=== PATIENT | male | born 1960 | race African-American/Black ===

== ENCOUNTER 2023-06-07 19:55 | Inpatient (IN) | payer MEDICARE, OTHER ==
[~2023-06-07] VITALS: Ht 167.6 cm; Wt 59.4 kg
[2023-06-07] MEDS ORDERED: SODIUM CHLORIDE 0.9% 1,000 ML IV ONE (21:30)
[2023-06-07 22:57] LABS: BASOPHILS % 0.2 % (0.0-2.0); EOSINOPHILS % 1.4 % (0.0-5.0); HEMOGLOBIN. 14.6 g/dL (14.0-18.0); LYMPHOCYTES % 16.5 % (20.0-50.0); MEAN CORPUSCULAR HEMOGLOBIN 28.7 pg (28.0-32.0); MEAN CORPUSCULAR HGB CONC 31.6 g/dL (31.0-37.0); MEAN CORPUSCULAR VOLUME 90.8 fL (80.0-94.0); MEAN PLATELET VOLUME 9.4 fl (7.4-10.4); MONOCYTES % 8.6 % (2.0-8.0); NEUTROPHILS % 73.3 % (40.0-76.0); PLATELET 210 x1000/uL (130-400); RED BLOOD CELL COUNT 5.07 mill/uL (4.7-6.1); RED CELL DISTRIBUTION WIDTH 14.1 % (11.6-14.6); WHITE BLOOD COUNT 6.7 x1000/uL (4.5-11.0)
[2023-06-07 23:21] LABS: ALANINE AMINOTRANSFERASE 72 IU/L (10-49); ALBUMIN 3.8 g/dL (3.2-4.8); ASPARTATE AMINOTRANSFERASE 26 IU/L (<34); BILIRUBIN TOTAL 0.5 mg/dL (0.1-1.0); CALCIUM 9.6 mg/dL (8.7-10.4); CARBON DIOXIDE 28 mEq/L (21-32); CHLORIDE 109 mEq/L (98-107); CREATININE 0.7 mg/dL (0.6-1.3); GLUCOSE 84 mg/dL (70-105); POTASSIUM 4.3 mEq/L (3.5-5.1); PROTEIN TOTAL 7.3 g/dL (6.0-8.3); SODIUM 144 mEq/L (136-145); UREA NITROGEN BLOOD 17 mg/dL (9-23)
[2023-06-07] MEDS ORDERED: LORAZEPAM 2MG/ML INJ IM ONE (23:30)
[2023-06-07] MEDS ORDERED: LORAZEPAM 2MG/ML UD SYRINGE IM NR (23:45)
[2023-06-08 04:00] VITALS: BP 154/101; PULSE 80; RESP 18; TEMP 97.5
[2023-06-08 04:20] VITALS: BP 154/101; PULSE 80; RESP 18; TEMP 97.5
[2023-06-08 08:00] VITALS: BP 161/94; PULSE 73; RESP 16; TEMP 96
[2023-06-08] MEDS: DEXT 5%/0.9% NACL 1,000 ML IV SCH ×2 (09:50→23:01)
[2023-06-08] MEDS ORDERED: ASPI-1497 GT (10:06)
[2023-06-08] MEDS ORDERED: ATOR40TA70 MT (10:07)
[2023-06-08] MEDS ORDERED: FAMO20TA8 MT (10:08)
[2023-06-08] MEDS ORDERED: SENN-257 GT (10:14)
[2023-06-08] MEDS ORDERED: LISI30TA36 PO (10:14)
[2023-06-08] MEDS ORDERED: METO25TA6 GT (10:14)
[2023-06-08] MEDS ORDERED: LEVE500S9 GT (10:17)
[2023-06-08 12:00] VITALS: BP 144/96; PULSE 73; RESP 18; TEMP 97
[2023-06-08 16:00] VITALS: BP 167/99; PULSE 74; RESP 18; TEMP 96.8
[2023-06-08] MEDS ORDERED: HYDRALAZINE 20MG/ML VIAL IV PRN (16:00)
[2023-06-08] MEDS: HYDRALAZINE 10 MG in SODIUM CHLORIDE 0.9% 50 ML IV PRN ×2 (17:02→23:20)
[2023-06-08 20:00] VITALS: BP 161/94; PULSE 79; RESP 18; TEMP 97.9
[2023-06-08] MEDS ORDERED: ACETAMINOPHEN 325MG TABLET PO PRN (21:45)
[2023-06-08] MEDS ORDERED: ONDANSETRON HCL 4MG/2ML INJ IV PRN (21:45)
[2023-06-08] MEDS ORDERED: IPRATROPIUM/ALBUTEROL 0.5-3(2.5)MG/3ML NEB HHN SCH (21:45)
[2023-06-09] VITALS: BP 167/103; PULSE 93; RESP 18; TEMP 98.2
[2023-06-09 04:00] VITALS: BP 168/112; PULSE 98; RESP 18; TEMP 97.7
[2023-06-09 07:10] LABS: BASOPHILS % 0.2 % (0.0-2.0); EOSINOPHILS % 1.7 % (0.0-5.0); HEMATOCRIT. 42.2 % (42.0-52.0); HEMOGLOBIN. 13.9 g/dL (14.0-18.0); LYMPHOCYTES % 11.6 % (20.0-50.0); MEAN CORPUSCULAR HGB CONC 32.9 g/dL (31.0-37.0); MEAN PLATELET VOLUME 9.7 fl (7.4-10.4); MONOCYTES % 8.2 % (2.0-8.0); NEUTROPHILS % 78.3 % (40.0-76.0); PLATELET 226 x1000/uL (130-400); RED CELL DISTRIBUTION WIDTH 13.8 % (11.6-14.6); WHITE BLOOD COUNT 7.1 x1000/uL (4.5-11.0)
[2023-06-09 07:56] LABS: CALCIUM 9.5 mg/dL (8.7-10.4); CARBON DIOXIDE 30 mEq/L (21-32); CHLORIDE 111 mEq/L (98-107); CREATININE 0.6 mg/dL (0.6-1.3); GLUCOSE 103 mg/dL (70-105); POTASSIUM 3.5 mEq/L (3.5-5.1); SODIUM 148 mEq/L (136-145); UREA NITROGEN BLOOD 15 mg/dL (9-23)
[2023-06-09 08:00] VITALS: BP 169/96; PULSE 94; RESP 19; TEMP 97.7
[2023-06-09] MEDS: PANTOPRAZOLE SODIUM 40 MG/VIAL IV SCH (08:20)
[2023-06-09] MEDS: HYDRALAZINE 10 MG in SODIUM CHLORIDE 0.9% 50 ML IV PRN (09:08)
[2023-06-09] MEDS ORDERED: HALOPERIDOL LACTATE 5MG/ML VIAL IM NR (10:30)
[2023-06-09] MEDS: DEXT 5%/0.45% NACL 1000ML 1,000 ML IV SCH (10:46)
[2023-06-09] MEDS ORDERED: LABETALOL HCL VIAL 20 MG/4 ML VIAL IV ONE (11:30)
[2023-06-09 12:00] VITALS: BP 172/105; PULSE 78; RESP 19; TEMP 97.6
[2023-06-09] MEDS ORDERED: LABETALOL HCL IV ONE (12:00)
[2023-06-09] MEDS ORDERED: DEXTROSE 5% IV ONE (12:00)
[2023-06-09] MEDS ORDERED: WATER IV ONE (12:00)
[2023-06-09] MEDS ORDERED: LABETALOL HCL VIAL 20 MG/4 ML VIAL IV NR (12:30)
[2023-06-09] MEDS ORDERED: CLONIDINE HCL 0.1MG/24HR PATCH TD SCH (13:00)
[2023-06-09 16:01] VITALS: BP 147/92; PULSE 97; RESP 19; TEMP 97.6
[2023-06-09 20:00] VITALS: BP 128/83; PULSE 68; RESP 14; TEMP 98.4
[2023-06-09] MEDS ORDERED: HALOPERIDOL LACTATE 5MG/ML VIAL IM ONE (20:17)
[2023-06-10] VITALS: BP 171/111; PULSE 81; RESP 14; TEMP 97.6
[2023-06-10] MEDS: HYDRALAZINE 10 MG in SODIUM CHLORIDE 0.9% 50 ML IV PRN ×2 (01:04→13:14)
[2023-06-10 04:00] VITALS: BP 159/87; PULSE 74; RESP 16; TEMP 97.5
[2023-06-10 07:45] LABS: BASOPHILS % 0.2 % (0.0-2.0); EOSINOPHILS % 1.6 % (0.0-5.0); HEMATOCRIT. 41.7 % (42.0-52.0); HEMOGLOBIN. 13.8 g/dL (14.0-18.0); LYMPHOCYTES % 12.1 % (20.0-50.0); MEAN CORPUSCULAR HGB CONC 33.1 g/dL (31.0-37.0); MEAN CORPUSCULAR VOLUME 87.4 fL (80.0-94.0); MEAN PLATELET VOLUME 9.7 fl (7.4-10.4); MONOCYTES % 8.8 % (2.0-8.0); NEUTROPHILS % 77.3 % (40.0-76.0); PLATELET 215 x1000/uL (130-400); RED BLOOD CELL COUNT 4.78 mill/uL (4.7-6.1); RED CELL DISTRIBUTION WIDTH 13.9 % (11.6-14.6); WHITE BLOOD COUNT 7.7 x1000/uL (4.5-11.0)
[2023-06-10 08:00] VITALS: BP 173/89; PULSE 61; RESP 67; TEMP 97.2
[2023-06-10 08:05] LABS: CALCIUM 9.8 mg/dL (8.7-10.4); CARBON DIOXIDE 27 mEq/L (21-32); CHLORIDE 108 mEq/L (98-107); CREATININE 0.6 mg/dL (0.6-1.3); GLUCOSE 102 mg/dL (70-105); POTASSIUM 3.4 mEq/L (3.5-5.1); SODIUM 145 mEq/L (136-145); UREA NITROGEN BLOOD 9 mg/dL (9-23)
[2023-06-10] MEDS: PANTOPRAZOLE SODIUM 40 MG/VIAL IV SCH (09:33)
[2023-06-10 12:11] VITALS: BP 168/103; PULSE 72; RESP 17; TEMP 97.3
[2023-06-10] MEDS ORDERED: DIATR MEGLU/DIATRIZOATE SOLN 30ML ONE (12:53)
[2023-06-10] MEDS: DEXT 5%/0.45% NACL 1000ML 1,000 ML IV SCH ×2 (13:25)
[2023-06-10] MEDS ORDERED: HALOPERIDOL LACTATE 5MG/ML VIAL IM NR (14:00)
[2023-06-10 16:00] VITALS: BP 152/96; PULSE 91; RESP 18; TEMP 97.4
[2023-06-10 20:00] VITALS: BP 152/95; PULSE 114; RESP 18; TEMP 97.9
[2023-06-10] MEDS ORDERED: LORAZEPAM 4MG/ML INJ IV PRN (23:15)
[2023-06-11] VITALS: BP 110/76; PULSE 58; RESP 18; TEMP 97
[2023-06-11] MEDS: DEXT 5%/0.45% NACL 1000ML 1,000 ML IV SCH ×2 (02:45→16:05)
[2023-06-11 04:00] VITALS: BP 156/101; PULSE 83; RESP 18; TEMP 97
[2023-06-11 06:46] LABS: BASOPHILS % 0.3 % (0.0-2.0); EOSINOPHILS % 3.5 % (0.0-5.0); HEMATOCRIT. 40.3 % (42.0-52.0); HEMOGLOBIN. 13.3 g/dL (14.0-18.0); LYMPHOCYTES % 24.6 % (20.0-50.0); MEAN CORPUSCULAR VOLUME 87.7 fL (80.0-94.0); MEAN PLATELET VOLUME 8.8 fl (7.4-10.4); NEUTROPHILS % 61.6 % (40.0-76.0); PLATELET 191 x1000/uL (130-400); RED CELL DISTRIBUTION WIDTH 13.6 % (11.6-14.6); WHITE BLOOD COUNT 3.5 x1000/uL (4.5-11.0)
[2023-06-11 06:50] LABS: CALCIUM 9.5 mg/dL (8.7-10.4); CARBON DIOXIDE 32 mEq/L (21-32); CHLORIDE 105 mEq/L (98-107); CREATININE 0.5 mg/dL (0.6-1.3); GLUCOSE 104 mg/dL (70-105); POTASSIUM 3.3 mEq/L (3.5-5.1); SODIUM 140 mEq/L (136-145); UREA NITROGEN BLOOD 7 mg/dL (9-23)
[2023-06-11 08:00] VITALS: BP 148/93; PULSE 84; RESP 16; TEMP 97.4
[2023-06-11] MEDS ORDERED: QUETIAPINE FUMARATE 25MG TABLET GT SCH (09:00)
[2023-06-11] MEDS: FAMOTIDINE 20MG TABLET GT SCH ×2 (10:00→21:44)
[2023-06-11] MEDS: PANTOPRAZOLE SODIUM 40 MG/VIAL IV SCH (10:00)
[2023-06-11] MEDS: LEVETIRACETAM 500MG/5ML CUP GT SCH ×2 (10:01→21:44)
[2023-06-11] MEDS: METOPROLOL TARTRATE 25MG TABLET GT SCH ×2 (10:01→21:48)
[2023-06-11 12:00] VITALS: BP 134/94; PULSE 71; RESP 17; TEMP 98
[2023-06-11 16:00] VITALS: BP 140/98; PULSE 81; RESP 16; TEMP 98
[2023-06-11] MEDS ORDERED: POTASSIUM CHLORIDE 20MEQ/PACKET PEG NR ×2 (16:00→22:45)
[2023-06-11 17:23] LABS: BG BASE EXCESS 1.9 mmol/L (-2.0-2.0); BG CARBOXYHEMOGLOBIN 0.4 % (0.5-1.5); BG DEOXYHEMOGLOBIN 2.1 % (0.0-5.0); BG FRACTION INSPIRED OXYGEN 21; BG HCO3 ACT 24.5 mmol/L (22.0-26.0); BG METHEMOGLOBIN 0.2 % (0.0-1.5); BG OXYGEN SATURATION 97.9 % (92.0-98.5); BG OXYHEMOGLOBIN 97.3 % (94.0-97.0); BG PCO2 32.4 mmHg (35.0-45.0); BG PH 7.496 (7.350-7.450); BG PO2 107.5 mmHg (75.0-100.0); BG SAMPLE SITE RIGHT RADIAL; BG TOTAL HEMOGLOBIN 14.2 g/dL (12.0-18.0); BG VENT MODE ROOM AIR
[2023-06-11] MEDS: ATORVASTATIN CALCIUM 40MG TABLET GT SCH (21:44)
[2023-06-12] MEDS: DEXT 5%/0.45% NACL 1000ML 1,000 ML IV SCH (05:25)
[2023-06-12 06:51] LABS: BASOPHILS % 0.1 % (0.0-2.0); EOSINOPHILS % 1.5 % (0.0-5.0); HEMATOCRIT. 40.5 % (42.0-52.0); HEMOGLOBIN. 13.1 g/dL (14.0-18.0); LYMPHOCYTES % 15.7 % (20.0-50.0); MEAN CORPUSCULAR HEMOGLOBIN 28.8 pg (28.0-32.0); MEAN CORPUSCULAR HGB CONC 32.5 g/dL (31.0-37.0); MEAN CORPUSCULAR VOLUME 88.7 fL (80.0-94.0); MEAN PLATELET VOLUME 9.6 fl (7.4-10.4); MONOCYTES % 6.9 % (2.0-8.0); NEUTROPHILS % 75.8 % (40.0-76.0); PLATELET 189 x1000/uL (130-400); RED BLOOD CELL COUNT 4.56 mill/uL (4.7-6.1); RED CELL DISTRIBUTION WIDTH 13.6 % (11.6-14.6)
[2023-06-12 06:54] LABS: CALCIUM 9.2 mg/dL (8.7-10.4); CARBON DIOXIDE 30 mEq/L (21-32); CHLORIDE 106 mEq/L (98-107); CREATININE 0.6 mg/dL (0.6-1.3); GLUCOSE 93 mg/dL (70-105); POTASSIUM 3.4 mEq/L (3.5-5.1); SODIUM 141 mEq/L (136-145); UREA NITROGEN BLOOD 12 mg/dL (9-23)
[2023-06-12 08:05] VITALS: BP 122/74; PULSE 60; RESP 18; TEMP 97
[2023-06-12] MEDS: QUETIAPINE FUMARATE 25MG TABLET PO SCH ×2 (08:52→16:05)
[2023-06-12] MEDS: FAMOTIDINE 20MG TABLET GT SCH ×2 (08:52→16:05)
[2023-06-12] MEDS: LEVETIRACETAM 500MG/5ML CUP GT SCH ×2 (08:52→21:28)
[2023-06-12] MEDS: METOPROLOL TARTRATE 25MG TABLET GT SCH ×2 (08:53→16:06)
[2023-06-12] MEDS ORDERED: LACTULOSE 20G/30ML UDC PO NR (09:15)
[2023-06-12] MEDS ORDERED: HALOPERIDOL LACTATE 5MG/ML VIAL IM NR ×2 (11:00→21:00)
[2023-06-12 12:52] VITALS: BP 146/71; PULSE 61; TEMP 97.5; O2SAT 98
[2023-06-12 16:00] VITALS: BP 153/92; PULSE 92; RESP 18; TEMP 97.5
[2023-06-12 20:00] VITALS: BP 147/92; PULSE 70; RESP 18; TEMP 97.9
[2023-06-12] MEDS: ATORVASTATIN CALCIUM 40MG TABLET GT SCH (21:28)
[2023-06-12] MEDS: RISPERIDONE 1MG TABLET PO SCH (22:12)
[2023-06-13] VITALS (7 sets, daily range): BP systolic 120–163; BP diastolic 67–92; PULSE 72–96; RESP 18–20; TEMP 92.2–98.1; O2SAT 98
[2023-06-13] MEDS ORDERED: HALOPERIDOL LACTATE 5MG/ML VIAL IM NR (07:00)
[2023-06-13] MEDS: DEXT 5%/0.45% NACL 1000ML 1,000 ML IV SCH (08:05)
[2023-06-13] MEDS: QUETIAPINE FUMARATE 25MG TABLET PO SCH ×2 (08:42→16:50)
[2023-06-13] MEDS: FAMOTIDINE 20MG TABLET GT SCH ×2 (08:42→16:50)
[2023-06-13] MEDS: METOPROLOL TARTRATE 25MG TABLET GT SCH ×2 (08:42→16:50)
[2023-06-13] MEDS: RISPERIDONE 1MG TABLET PO SCH (08:42)
[2023-06-13] MEDS: LEVETIRACETAM 500MG/5ML CUP GT SCH (08:42)
== END 2023-06-13 18:43 | DRG 252 ==
LOC: ER 19:55 → EDBEDREQTM 06-08 01:40 → EDBEDREQ 06-08 01:40 → 6WST 06-08 03:28
PROVIDERS: ADMIT Internal Medicine; ATTEND Internal Medicine
PROC: 0D20XUZ Change Feeding Device in Upper Intestinal Tract, External Approach (ICD-10-PCS; principal; 2023-06-10)
DX: K94.23 Gastrostomy malfunction (principal); G93.40 Encephalopathy, unspecified; R62.7 Adult failure to thrive; F01.50 Vascular dementia, unspecified severity, without behavioral disturbance, psychotic disturbance, mood disturbance, and anxiety; R74.01 Elevation of levels of liver transaminase levels; E78.5 Hyperlipidemia, unspecified; I10 Essential (primary) hypertension; I25.10 Atherosclerotic heart disease of native coronary artery without angina pectoris; Z68.21 Body mass index [BMI] 21.0-21.9, adult; E11.9 Type 2 diabetes mellitus without complications; G40.909 Epilepsy, unspecified, not intractable, without status epilepticus; J44.9 Chronic obstructive pulmonary disease, unspecified; Z86.73 Personal history of transient ischemic attack (TIA), and cerebral infarction without residual deficits
CPT/HCPCS: 36415; 36600; 74018; 80048; 80053; 82375; 82805; 85025; 99285; A6261; C9113; J0360; J1630; J2060; J3490; J7030; J7042; J7060; Q9963

== ENCOUNTER 2023-06-16 09:49 | Emergency (ER) | payer MEDICARE, OTHER ==
[~2023-06-16] VITALS: Ht 165.1 cm; Wt 70.0 kg
[~2023-06-16 09:49] MED LIST: ASPI-1497 GT; ATOR40TA70 MT; FAMO20TA8 MT; LEVE500S9 GT; LISI30TA36 PO; METO25TA6 GT; SENN-257 GT
[2023-06-16 10:02] VITALS: O2SAT 98
[2023-06-16 10:40] LABS: BASOPHILS % 0.1 % (0.0-2.0); EOSINOPHILS % 1.7 % (0.0-5.0); HEMATOCRIT. 41.9 % (42.0-52.0); HEMOGLOBIN. 13.4 g/dL (14.0-18.0); LYMPHOCYTES % 8.6 % (20.0-50.0); MEAN CORPUSCULAR HEMOGLOBIN 28.4 pg (28.0-32.0); MEAN CORPUSCULAR HGB CONC 31.9 g/dL (31.0-37.0); MEAN CORPUSCULAR VOLUME 89.1 fL (80.0-94.0); MEAN PLATELET VOLUME 8.9 fl (7.4-10.4); MONOCYTES % 7.8 % (2.0-8.0); NEUTROPHILS % 81.8 % (40.0-76.0); PLATELET 182 x1000/uL (130-400); RED CELL DISTRIBUTION WIDTH 14.3 % (11.6-14.6); WHITE BLOOD COUNT 8.7 x1000/uL (4.5-11.0)
[2023-06-16 12:54] LABS: ALANINE AMINOTRANSFERASE 25 IU/L (10-49); ALBUMIN 3.6 g/dL (3.2-4.8); ASPARTATE AMINOTRANSFERASE 19 IU/L (<34); BILIRUBIN TOTAL 0.3 mg/dL (0.1-1.0); CALCIUM 9.2 mg/dL (8.7-10.4); CARBON DIOXIDE 28 mEq/L (21-32); CHLORIDE 102 mEq/L (98-107); CREATININE 0.6 mg/dL (0.6-1.3); GLUCOSE 95 mg/dL (70-105); POTASSIUM 4.3 mEq/L (3.5-5.1); PROTEIN TOTAL 6.7 g/dL (6.0-8.3); SODIUM 136 mEq/L (136-145); TROPONIN I HIGH SENSITIVITY 25 ng/L (3.0-53); UREA NITROGEN BLOOD 15 mg/dL (9-23)
[2023-06-16 15:00] VITALS: BP 141/100; PULSE 59; RESP 14; TEMP 98.1
[2023-06-16] MEDS ORDERED: LORAZEPAM 2MG/ML INJ IV ONE (15:00)
== END 2023-06-16 16:30 | disposition short-term general hospital (02) ==
LOC: ER 09:56
DX: Z04.3 Encounter for examination and observation following other accident (principal); J44.9 Chronic obstructive pulmonary disease, unspecified; E11.9 Type 2 diabetes mellitus without complications; I10 Essential (primary) hypertension; I25.2 Old myocardial infarction; Z86.73 Personal history of transient ischemic attack (TIA), and cerebral infarction without residual deficits; W19.XXXA Unspecified fall, initial encounter; Y93.89 Activity, other specified; Y92.89 Other specified places as the place of occurrence of the external cause; Y99.8 Other external cause status
CPT/HCPCS: 80053; 83880; 85025; 84484; 36415; 71045; 70450; 93005; 99285; Z7610